=== PATIENT | female | born 1980 | race Caucasian/White ===

== ENCOUNTER 2017-12-30 12:24 | Emergency (ER) | payer OTHER ==
[~2017-12-30] VITALS: Ht 160 cm; Wt 150.6 kg
[~2017-12-30 12:24] MED LIST: ALPR.25 PO; CEPH500 PO; CYCL10 PO; ESCI20 PO; Excedrin Extra1 EACH PO; HYDACE10B PO; HYDACE5 PO; IBUP600 PO; IBUP800 PO; META800 PO; OXYACE5T PO; Percocet 10-321 EACH PO; Ranitidine HCl150 M1 PO; TRAM50 PO
[2017-12-30] MEDS ORDERED: Lexapro20 MG PO (13:59)
[2017-12-30] MEDS ORDERED: PROP10 PO (13:59)
[2017-12-30] MEDS ORDERED: BARIATRIC MULTI (13:59)
[2017-12-30] MEDS ORDERED: Robaxin500 MG PO (14:28)
[2017-12-30] MEDS ORDERED: Norco 5-325 Ta1 EACH PO (14:28)
== END 2017-12-30 14:33 | disposition home or self-care (01) ==
LOC: ER 12:24
DX: M54.5 Low back pain (principal); G89.29 Other chronic pain; F17.200 Nicotine dependence, unspecified, uncomplicated; Z88.6 Allergy status to analgesic agent; Z88.8 Allergy status to other drugs, medicaments and biological substances; Z88.5 Allergy status to narcotic agent; Z79.899 Other long term (current) drug therapy
CPT/HCPCS: 99283